=== PATIENT | female | born 1960 | race Caucasian/White ===

== ENCOUNTER 2018-04-11 18:00 | Inpatient (IN) ==
[2018-04-11] MEDS ORDERED: Mag Hydrox/Al Hydrox/Simeth 30 ML UDC PO PRN (18:52)
[2018-04-11] MEDS: *HR* OxyCODONE Immed Rel 5 MG TABLET PO PRN (21:06)
[2018-04-11] MEDS: Ziprasidone 20 MG CAPSULE PO SCH (21:57)
[2018-04-11] MEDS: Acetaminophen 325 MG TABLET PO PRN (22:00)
[2018-04-12 04:53] LABS: Basophils % 0.3 %; Eosinophils # 0.3 K/mcL (0.0-0.6); Eosinophils % 2.4 %; Hematocrit 33.1 % (35.3-44.9); Hemoglobin 10.8 g/dL (11.5-15.4); Immature Granulocytes % 0.8 % (0-4); Lymphocytes # 3.1 K/mcL (0.6-4.6); Lymphocytes % 24.2 %; Mean Corpuscular HGB Conc 32.6 g/dL (31.6-35.5); Mean Corpuscular Hemoglobin 26.2 pg (28.0-33.3); Mean Corpuscular Volume 80.1 fL (83.0-100.0); Mean Platelet Volume 8.5 fL (9.4-12.4); Monocytes # 1.1 K/mcL (0.0-1.3); Monocytes % 8.5 %; Neutrophils # 8.1 K/mcL (1.6-8.9); Platelet Count 382 K/mcL (140-400); Red Blood Count 4.13 M/mcL (3.82-4.97); Red Cell Distribution Width 13.9 % (11.5-14.5); Segmented Neutrophils % 63.8 %
[2018-04-12 05:09] LABS: BUN/Creatinine Ratio 13 (6-26); Blood Urea Nitrogen 8 mg/dL (6-20); Calcium 9.4 mg/dL (8.6-10.3); Carbon Dioxide 26 mEq/L (23-29); Chloride 99 mEq/L (98-107); Glucose 206 mg/dL (70-105); Osmolality,Calculated 280 (280-300); Potassium 3.8 mEq/L (3.5-5.1); Sodium 133 mEq/L (136-145); eGFR For Non-African Americans > 60 (> 60)
[2018-04-12] MEDS: *HR* OxyCODONE Immed Rel 5 MG TABLET PO PRN ×4 (05:58→20:50)
[2018-04-12] MEDS: *HR* Enoxaparin 40 MG/0.4 ML SYRINGE SQ SCH (05:59)
[2018-04-12] MEDS ORDERED: *HR* Metformin 500 MG TABLET PO SCH (08:00)
[2018-04-12] MEDS: amLODIPine 5 MG TABLET PO SCH (08:46)
[2018-04-12] MEDS: Aspirin Enteric Coated 81 MG Tablet PO SCH (08:47)
[2018-04-12] MEDS: Lisinopril 20 MG TABLET PO SCH (08:47)
[2018-04-12] MEDS: *HR* Pioglitazone 15 MG TABLET PO SCH (08:47)
[2018-04-12] MEDS: Loratadine 10 MG TABLET PO SCH (08:47)
[2018-04-12] MEDS: BuPROPion XL (24 HR) 150 MG TABLET PO SCH (08:47)
[2018-04-12] MEDS: Ziprasidone 20 MG CAPSULE PO SCH ×2 (08:48→20:49)
[2018-04-12] MEDS: *HR* Metformin 500 MG TABLET PO SCH ×2 (08:56→16:53)
[2018-04-12] MEDS ORDERED: *HR* Glimepiride 4 MG TABLET PO SCH (09:00)
--- NOTE | 2018-04-12 11:23 | Internal Med History&Physical ---
Date of Encounter: 04/12/18 Time of Encounter: 11:15 Assessment and Plan (1) S/P total knee replacement Current visit: Yes Status: Acute Patient is recent admission where she had a left total knee replacement at [facility]. Left knee with midline incision that appears healthy and intact with no drainage noted. Minimal ecchymosis. No erythema. Left knee does appear somewhat swollen. Patient states that her pain is tolerable with current medications. States she already began physical therapy is progressing well. Qualifiers: Laterality: left Qualified Code(s): Z96.652 - Presence of left artificial knee joint (2) HTN (hypertension) Current visit: Yes Status: Chronic Vital signs are stable. We will continue with current medications. Qualifiers: Hypertension type: essential hypertension Qualified Code(s): I10 - Essential (primary) hypertension (3) Diabetes Current visit: Yes Status: Chronic No acute issues. Patient's glucose has been somewhat elevated but less than 200. We will continue to monitor and cover with sliding scale. To continue with her home regimen of coverage. 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 Patient continues on home medications. No complaints of arthritic type pain. We will continue with current plan of care. Qualifiers: Rheumatoid arthritis location: unspecified site Rheumatoid factor presence : unspecified presence Qualified Code(s): M06.9 - Rheumatoid arthritis, unspecified (5) Schizo affective schizophrenia Current visit: Yes Status: Chronic No acute issues. Patient has been interacting well with staff with no behavior issues reported. We will continue on current medications. Internal Medicine - H&P: HPI Chief complaint: right total knee replacement Admitted From: Hospital to Hospital Transfer Plans for Post Hospital Care: Home History of present illness: Ms. De Los Santos is a 57 year old female , who had a left total knee replacement at an [facility]. Patient's surgery recovery at [facility] was uneventful. Patient was transferred to this facility for further rehabilitation due to deconditioning. Patient has a history of hypertension, diabetes,, depression, anxiety and schizophrenia. Patient states that the pain to her right knee has been we will tolerated with current medications. She states that she began her physical therapy today and is progressing well with that. Denies any other discomforts or shortness of breath. Past Med Surg Social Fam HX - Past Medical History Medical history: arthritis, diabetes, GERD, glaucoma, hypertension, thyroid disease, other Additional medical history: Tremors, Sleep Apnea, Heart Disease Psychiatric history: anxiety, depression, schizophrenia - Past Surgical History Surgical History: cholecystectomy, knee replacement, other Additional surgical history: Tonsilectomy - Social History Smoking Status: Never smoker Smokeless Tobacco Status: No Alcohol use: none Drug use: none - Family History Mother Living Status: Still Living Hx Family Endocrine Disorder: Yes Father Living Status: Hx Family Cardiac Disorders: Yes Hx Family Endocrine Disorder: Yes Internal Medicine - H&P: Meds Amantadine [Symmetrel] 100 mg PO TID 05/11/17 [History] BuPROPion [Wellbutrin] 300 mg PO DAILY 05/11/17 [History] Citalopram [CeleXA] 40 mg PO DAILY 05/11/17 [History] Glimepiride [Amaryl] 4 mg PO BID 05/11/17 [History] Levothyroxine [Synthroid] 125 mcg PO 0630 05/11/17 [History] Lisinopril [Zestril] 20 mg PO DAILY 05/11/17 [History] Loratadine [Claritin] 10 mg PO DAILY 05/11/17 [History] Omeprazole 40 mg PO DAILY 05/11/17 [History] Ziprasidone [Geodon] 40 mg PO BID 05/11/17 [History] Zolpidem [Ambien] 5 mg PO HS PRN 05/11/17 [History] amLODIPine [Norvasc] 10 mg PO DAILY 05/11/17 [History] diazePAM [Valium] 2 mg PO BID PRN 05/11/17 [History] metFORMIN [Glucophage] 1,000 mg PO BIDWM 05/11/17 [History] Aspirin [Ecotrin] 325 mg PO DAILY 04/11/18 [History] Chlorhexidine Gluconate [Hibiclens] 4 % TP DAILY 04/11/18 [History] Diclofenac Sodium 100 gm TP QID PRN 04/11/18 [History] Pioglitazone [Actos] 15 mg PO DAILY 04/11/18 [History] 3 Allergy/AdvReac Type Severity Reaction Status Date / [facility] Allergy Hives Verified 04/11/18 19:07 All Systems PM: A 10-system review of systems was performed and is negative for pertinent findings except as documented above in the HPI. - Constitutional Constitutional: as per HPI, no chills, no fever(s), no night sweats - EENT Eyes: no change in vision, no discharge, no pain, no photophobia Ears: no ear discharge, no ear pain, no tinnitus Nose, mouth and throat: no dysphagia, no nasal discharge, no neck pain, no sore throat - Cardiovascular Cardiovascular ROS IM: as per HPI, no chest pain, no diaphoresis, no dyspnea, no lightheadedness, no palpitations, no syncope - Respiratory Respiratory: as per HPI, no cough, no dyspnea, no wheezing, no excessive phlegm production - Gastrointestinal Gastrointestinal: as per HPI, no abdominal pain, no diarrhea, no hematemesis, no hematochezia, no melena, no nausea, no vomiting - Genitourinary Genitourinary: no change in urinary stream, no dysuria, no flank pain, no hematuria - Musculoskeletal Musculoskeletal ROS IM: as per HPI, no numbness, no tingling - Integumentary Integumentary IM: no rash, no unusual bruising - Neurological Neurological ROS: no confusion, no convulsions, no focal weakness, no numbness, no tingling, no tremor(s) - Hematologic/Lymphatic Hematologic/Lymphatic: no easy bruising - Constitutional Vitals: Temp Pulse Resp BP Pulse Ox 98.9 F 90 16 172/98 95 04/12/18 07:20 04/12/18 07:20 04/12/18 07:20 04/12/18 07:20 04/12/18 07:20 General appearance: Present: A&O X 3, pleasant - Head Head exam: Present: atraumatic, normocephalic - Eye Eye exam: Present: PERRL, conjuntiva pink, sclera anicteric Pupils: Present: PERRL - Neck Neck exam general surgery: Present: supple, trachea midline. Absent: lymphadenopathy - Respiratory Respiratory exam: Present: CTAB. Absent: accessory muscle use, rales, rhonchi, wheezes - Cardiovascular Cardiovascular exam: Present: RRR, +S1, +S2. Absent: diastolic murmur, gallop, rubs, systolic murmur - GI/Abdominal GI/Abdominal exam: Present: normal bowel sounds, soft, no peritoneal signs. Absent: distended, tenderness - Extremities Exam Extremities exam: Present: warm, radial pulses palpable and symmetrical. Absent : calf tenderness, cyanotic, pedal edema Additional comments: Left knee continues to have moderate amount of edema, but midline surgical incision appears healthy and intact. Minimal ecchymosis noted. No erythema. - Neurological Exam Neurological exam: Present: CN II-XII intact, oriented X3, no focal deficits. Absent: pronater drift, facial droop, speech deficit - Skin Skin exam: Present: dry, intact Internal Med - H&P Results - Labs CBC & Chem 7: 04/12/18 04:42 04/12/18 04:42 Labs: Short CBC 04/12/18 Range/Units 04:42 WBC 12.7 H (4.3-11.1) K/mcL Hgb 10.8 L (11.5-15.4) g/dL Hct 33.1 L (35.3-44.9) % Plt Count 382 (140-400) K/mcL Neutrophils # 8.1 (1.6-8.9) K/mcL BMP 04/12/18 04:42 Sodium 133 L Potassium 3.8 Chloride 99 Carbon Dioxide 26 BUN 8 Creatinine 0.64 Glucose 206 H Calcium 9.4
[2018-04-12] MEDS: Acetaminophen 325 MG TABLET PO PRN (23:35)
[2018-04-13] MEDS: *HR* Enoxaparin 40 MG/0.4 ML SYRINGE SQ SCH (05:18)
[2018-04-13] MEDS: *HR* OxyCODONE Immed Rel 5 MG TABLET PO PRN ×5 (05:21→22:04)
[2018-04-13 06:25] LABS: Basophils # 0.1 K/mcL (0.0-0.2); Basophils % 0.6 %; Eosinophils # 0.5 K/mcL (0.0-0.6); Eosinophils % 5.3 %; Hematocrit 30.8 % (35.3-44.9); Immature Granulocytes % 0.9 % (0-4); Lymphocytes # 2.6 K/mcL (0.6-4.6); Lymphocytes % 28.2 %; Mean Corpuscular HGB Conc 32.5 g/dL (31.6-35.5); Mean Corpuscular Hemoglobin 26.4 pg (28.0-33.3); Mean Corpuscular Volume 81.3 fL (83.0-100.0); Mean Platelet Volume 8.6 fL (9.4-12.4); Monocytes # 0.8 K/mcL (0.0-1.3); Monocytes % 8.6 %; Neutrophils # 5.2 K/mcL (1.6-8.9); Platelet Count 370 K/mcL (140-400); Red Blood Count 3.79 M/mcL (3.82-4.97); Red Cell Distribution Width 14.2 % (11.5-14.5); Segmented Neutrophils % 56.4 %
[2018-04-13] MEDS: Loratadine 10 MG TABLET PO SCH (08:23)
[2018-04-13] MEDS: *HR* Glimepiride 2 MG TABLET PO SCH ×2 (08:24→16:45)
[2018-04-13] MEDS: BuPROPion XL (24 HR) 150 MG TABLET PO SCH (08:24)
[2018-04-13] MEDS: Lisinopril 20 MG TABLET PO SCH (08:24)
[2018-04-13] MEDS: Ziprasidone 20 MG CAPSULE PO SCH ×2 (08:24→20:20)
[2018-04-13] MEDS: Aspirin Enteric Coated 81 MG Tablet PO SCH (08:24)
[2018-04-13] MEDS: *HR* Pioglitazone 15 MG TABLET PO SCH (08:24)
[2018-04-13] MEDS: amLODIPine 5 MG TABLET PO SCH (08:25)
[2018-04-13] MEDS: *HR* Metformin 500 MG TABLET PO SCH ×2 (08:25→16:44)
--- NOTE | 2018-04-13 12:44 | Internal Med Progress Note ---
Date of Encounter: 04/13/18 Time of Encounter: 10:50 - Assessment and plan (1) S/P total knee replacement Current Visit: Yes Status: Acute Assessment and plan: She is stable, improving, and participating well in therapy per her. We will continue therapy and see about her safety as the days progressed. Qualifiers: Laterality: left Qualified Code(s): Z96.652 - Presence of left artificial knee joint (2) Schizo affective schizophrenia Current Visit: Yes Status: Chronic Assessment and plan: Clinically stable. We will continue home regimen and follow. (3) HTN (hypertension) Current Visit: Yes Status: Chronic Assessment and plan: Mildly elevated but will follow. 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 Qualifiers: Rheumatoid arthritis location: unspecified site Rheumatoid factor presence : unspecified presence Qualified Code(s): M06.9 - Rheumatoid arthritis, unspecified - Subjective Interval history: The patient is feeling much better today. She states that she is doing well with therapy. She had significant drainage, per nursing, at her knee. There is no abdominal pain but she does feel slightly tender in the epigastric region. She had a bowel movement this morning and feels better from that standpoint. She has no urinary symptoms. Patient has no complaint of chest discomfort, dyspnea, orthopnea, palpitations, nausea or vomiting, constipation or diarrhea, other changes in bowel habits, difficulty with urination, rash or itching, or other new complaints, except as mentioned above. Review of systems is otherwise negative. I discussed management of her care with nursing staff. - Constitutional Vitals: Temp Pulse Resp BP Pulse Ox 99.4 F 86 16 143/77 96 04/13/18 06:49 04/13/18 06:49 04/13/18 06:49 04/13/18 06:49 04/13/18 06:49 General appearance: Present: pleasant Exam: Examination: (Except as mentioned above): General: In no apparent distress. Alert and oriented 3. Nondiaphoretic. Head: Atraumatic and normocephalic. Respiratory: No use of accessory muscles. Lungs are clear throughout. Normal airflow. Cardiovascular: Regular rate and rhythm without murmur appreciated. Abdomen: Bowel sounds are normal. No hepatosplenomegaly mass or tenderness appreciated. Morbidly obese and therefore difficult to palpate deeply. Extremities: No cyanosis clubbing or edema. After dressing change, the knee looks good. Skin: Warm and non-diaphoretic with no new lesions noted. Internal Medicine: Result - Labs CBC & Chem 7: 04/13/18 05:15 04/12/18 04:42 Labs: Short CBC 04/13/18 Range/Units 05:15 WBC 9.3 (4.3-11.1) K/mcL Hgb 10.0 L (11.5-15.4) g/dL Hct 30.8 L (35.3-44.9) % Plt Count 370 (140-400) K/mcL Neutrophils # 5.2 (1.6-8.9) K/mcL Consult Discharge Plan - Plan Referrals: Genet Trotter, SKIP PIT WORKER [Primary Care Provider] -
[2018-04-13] MEDS: Acetaminophen 325 MG TABLET PO PRN (20:17)
[2018-04-13] MEDS: diazePAM 2 MG TABLET PO PRN (20:21)
[2018-04-14] MEDS: *HR* OxyCODONE Immed Rel 5 MG TABLET PO PRN ×5 (04:57→21:59)
[2018-04-14] MEDS: *HR* Enoxaparin 40 MG/0.4 ML SYRINGE SQ SCH (04:57)
[2018-04-14] MEDS: Acetaminophen 325 MG TABLET PO PRN ×3 (07:33→15:14)
[2018-04-14] MEDS: BuPROPion XL (24 HR) 150 MG TABLET PO SCH (08:41)
[2018-04-14] MEDS: *HR* Metformin 500 MG TABLET PO SCH ×2 (08:41→17:39)
[2018-04-14] MEDS: Ziprasidone 20 MG CAPSULE PO SCH ×2 (08:41→20:16)
[2018-04-14] MEDS: amLODIPine 5 MG TABLET PO SCH (08:41)
[2018-04-14] MEDS: *HR* Glimepiride 2 MG TABLET PO SCH ×2 (08:42→17:38)
[2018-04-14] MEDS: Lisinopril 20 MG TABLET PO SCH (08:42)
[2018-04-14] MEDS: *HR* Pioglitazone 15 MG TABLET PO SCH (08:43)
[2018-04-14] MEDS: Aspirin Enteric Coated 81 MG Tablet PO SCH (08:43)
[2018-04-14] MEDS: Loratadine 10 MG TABLET PO SCH (08:43)
[2018-04-14] MEDS: diazePAM 2 MG TABLET PO PRN (10:16)
--- NOTE | 2018-04-14 13:04 | Internal Med Progress Note ---
Date of Encounter: 04/14/18 Time of Encounter: 13:02 - Assessment and plan (1) S/P total knee replacement Current Visit: Yes Status: Acute Assessment and plan: No acute issues. Patient continues to recover and progressed well with physical therapy. Left knee surgical incision appears healthy although minimal amount of serous drainage reported on dressing yesterday. No erythema , but ecchymosis noted. Patient to continue with current physical therapy. Pain well -managed with current pain medications. Will continue with continuous icing and recommend her to use CPM due to moderate edema present. Qualifiers: Laterality: left Qualified Code(s): Z96.652 - Presence of left artificial knee joint (2) HTN (hypertension) Current Visit: Yes Status: Chronic Assessment and plan: Vital signs stable. We will continue with current medications. Qualifiers: Hypertension type: essential hypertension Qualified Code(s): I10 - Essential (primary) hypertension (3) Diabetes Current Visit: Yes Status: Chronic Assessment and plan: Glucose remained slightly elevated but most readings are less than 200. 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 Patient to continue with current rheumatoid medications. Qualifiers: Rheumatoid arthritis location: unspecified site Rheumatoid factor presence : unspecified presence Qualified Code(s): M06.9 - Rheumatoid arthritis, unspecified (5) Schizo affective schizophrenia Current Visit: Yes Status: Chronic Assessment and plan: No behavior issues reported. Patient interacting well with staff and progressing well with therapy. We will continue with current home medications - Time Spent With Patient less than 15 minutes - Subjective Interval history: Patient appears relaxant and currently denies any discomforts or shortness of breath. Patient states that her pain has been well-controlled with current medications. Patient also was using CPM machine, but states that she stopped after one night because of pain and felt that it was not helping. Nurse reports a dressing change yesterday with a minimal amount of serous drainage present, but that the surgical incision remains intact and healthy. - Constitutional Vitals: Temp Pulse Resp BP Pulse Ox 98.0 F 91 18 165/90 99 04/14/18 06:53 04/14/18 06:53 04/14/18 06:53 04/14/18 06:53 04/14/18 06:53 General appearance: Present: A&O X 3, pleasant - Head Head exam: Present: atraumatic, normocephalic - Eye Eye exam: Present: PERRL, conjuntiva pink, sclera anicteric Pupils: Present: PERRL - Neck Neck exam general surgery: Present: supple, trachea midline. Absent: lymphadenopathy - Respiratory Respiratory exam: Present: CTAB. Absent: accessory muscle use, rales, rhonchi, wheezes - Cardiovascular Cardiovascular exam: Present: RRR, +S1, +S2. Absent: diastolic murmur, gallop, rubs, systolic murmur - GI/Abdominal GI/Abdominal exam: Present: normal bowel sounds, soft, no peritoneal signs. Absent: distended, tenderness - Extremities Exam Extremities exam: Present: warm, radial pulses palpable and symmetrical. Absent : calf tenderness, cyanotic, pedal edema Additional comments: Left knee with midline surgical incision that appears dry and intact. No erythema, but moderate amount of ecchymosis noted. Moderate amount of swelling noted. - Neurological Exam Neurological exam: Present: CN II-XII intact, oriented X3, no focal deficits. Absent: pronater drift, facial droop, speech deficit - Skin Skin exam: Present: dry, intact Internal Medicine: Result - Labs CBC & Chem 7: 04/13/18 05:15 04/12/18 04:42 Consult Discharge Plan - Plan Referrals: Genet Trotter CNP [Primary Care Provider] -
[2018-04-14] MEDS ORDERED: cloNIDine HCl 0.1 MG TABLET PO PRN (13:54)
[2018-04-14] MEDS: tiZANidine 4 MG TABLET PO PRN ×2 (15:15→20:18)
[2018-04-14 22:06] LABS: Bilirubin,Urine Negative (Negative); Blood,Urine Negative (Negative); Clarity,Urine Slightly Cloudy (Clear); Color,Urine Yellow (Yellow); Glucose,Urine (UA) Normal (Normal); Ketones,Urine Negative (Negative); Leukocyte Esterase,Urine Negative (Negative); Nitrite,Urine Negative (Negative); Protein,Urine Negative (Neg-Trace); Urobilinogen,Urine Normal (Normal)
[2018-04-15] MEDS: Acetaminophen 325 MG TABLET PO PRN ×5 (01:13→23:20)
[2018-04-15] MEDS: *HR* OxyCODONE Immed Rel 5 MG TABLET PO PRN ×5 (02:43→20:20)
[2018-04-15] MEDS: *HR* Enoxaparin 40 MG/0.4 ML SYRINGE SQ SCH (06:56)
[2018-04-15 07:12] LABS: Alanine Aminotransferase 14 Units/L (7-52); Albumin 3.6 g/dL (3.5-5.7); Albumin/Globulin Ratio 1.4 (1.1-2.2); Alkaline Phosphatase 101 Units/L (34-104); Aspartate Amino Transferase 10 Units/L (13-39); BUN/Creatinine Ratio 18 (6-26); Bilirubin,Total 0.7 mg/dL (0.3-1.0); Blood Urea Nitrogen 12 mg/dL (6-20); Calcium 9.5 mg/dL (8.6-10.3); Carbon Dioxide 25 mEq/L (23-29); Chloride 99 mEq/L (98-107); Globulin 2.6 g/dL (2.4-3.5); Glucose 216 mg/dL (70-105); Osmolality,Calculated 282 (280-300); Potassium 4.1 mEq/L (3.5-5.1); Sodium 133 mEq/L (136-145); Total Protein 6.2 g/dL (6.4-8.9); eGFR For Non-African Americans > 60 (> 60)
[2018-04-15] MEDS: amLODIPine 5 MG TABLET PO SCH (08:54)
[2018-04-15] MEDS: *HR* Glimepiride 2 MG TABLET PO SCH ×2 (08:54→17:12)
[2018-04-15] MEDS: Lisinopril 20 MG TABLET PO SCH (08:55)
[2018-04-15] MEDS: Loratadine 10 MG TABLET PO SCH (08:55)
[2018-04-15] MEDS: BuPROPion XL (24 HR) 150 MG TABLET PO SCH (08:55)
[2018-04-15] MEDS: *HR* Metformin 500 MG TABLET PO SCH ×2 (08:55→17:12)
[2018-04-15] MEDS: *HR* Pioglitazone 15 MG TABLET PO SCH (08:55)
[2018-04-15] MEDS: diazePAM 2 MG TABLET PO PRN (09:13)
[2018-04-15] MEDS: Aspirin Enteric Coated 81 MG Tablet PO SCH (11:01)
[2018-04-15] MEDS: Ziprasidone 20 MG CAPSULE PO SCH ×2 (11:01→20:19)
--- NOTE | 2018-04-15 11:40 | Internal Med Progress Note ---
Date of Encounter: 04/15/18 Time of Encounter: 11:38 - Assessment and plan (1) S/P total knee replacement Current Visit: Yes Status: Acute Assessment and plan: No acute issues. Patient continues to recover and progressed well with physical therapy. Left knee surgical incision appears healthy although continued swelling to left knee noted. No erythema , but ecchymosis noted. Patient to continue with current physical therapy. Pain well-managed with current pain medications. Patient refusing use of CPM machine. Qualifiers: Laterality: left Qualified Code(s): Z96.652 - Presence of left artificial knee joint (2) HTN (hypertension) Current Visit: Yes Status: Chronic Assessment and plan: Vital signs stable. We will continue with current medications. Qualifiers: Hypertension type: essential hypertension Qualified Code(s): I10 - Essential (primary) hypertension (3) Diabetes Current Visit: Yes Status: Chronic Assessment and plan: Glucose remained slightly elevated but most readings are less than 200. We will continue with current sliding scale and medication regimen Qualifiers: Diabetes mellitus type: type 2 Diabetes mellitus acute specialist insulin use: unspecified acute specialist insulin use status Diabetes mellitus complication status : with unspecified complications Qualified Code(s): E11.8 - Type 2 diabetes mellitus with unspecified complications (4) Rheumatoid arthritis Current Visit: Yes Status: Chronic Assessment and plan: No acute issues reported. Patient to continue with current rheumatoid medications. Qualifiers: Rheumatoid arthritis location: unspecified site Rheumatoid factor presence : unspecified presence Qualified Code(s): M06.9 - Rheumatoid arthritis, unspecified (5) Schizo affective schizophrenia Current Visit: Yes Status: Chronic Assessment and plan: No behavior issues reported. Patient interacting well with staff and progressing well with therapy. We will continue with current home medications - Time Spent With Patient less than 15 minutes - Subjective Interval history: Patient appears relaxant and currently denies any discomforts or shortness of breath. Patient states that her pain has been well-controlled with current medications. Patient does complain of swelling to her left knee, but does state it has lessened some. - Constitutional Vitals: Temp Pulse Resp BP Pulse Ox 97.9 F 82 16 169/71 97 04/15/18 07:00 04/15/18 07:00 04/15/18 07:00 04/15/18 07:00 04/15/18 07:00 General appearance: Present: A&O X 3, pleasant - Head Head exam: Present: atraumatic, normocephalic - Eye Eye exam: Present: PERRL, conjuntiva pink, sclera anicteric Pupils: Present: PERRL - Neck Neck exam general surgery: Present: supple, trachea midline. Absent: lymphadenopathy - Respiratory Respiratory exam: Present: CTAB. Absent: accessory muscle use, rales, rhonchi, wheezes - Cardiovascular Cardiovascular exam: Present: RRR, +S1, +S2. Absent: diastolic murmur, gallop, rubs, systolic murmur - GI/Abdominal GI/Abdominal exam: Present: normal bowel sounds, soft, no peritoneal signs. Absent: distended, tenderness - Extremities Exam Extremities exam: Present: warm, radial pulses palpable and symmetrical. Absent : calf tenderness, cyanotic, pedal edema Additional comments: Left knee and thigh remains slightly swollen. Left knee midline surgical incision remains dry and intact with no erythema. Moderate ecchymosis noted surrounding the incision, which appears to be fading. No calf pain on palpation or movement - Neurological Exam Neurological exam: Present: CN II-XII intact, oriented X3, no focal deficits. Absent: pronater drift, facial droop, speech deficit - Skin Skin exam: Present: dry, intact Internal Medicine: Result - Labs CBC & Chem 7: 04/13/18 05:15 04/15/18 06:35 Labs: BMP 04/15/18 06:35 Sodium 133 L Potassium 4.1 Chloride 99 Carbon Dioxide 25 BUN 12 Creatinine 0.66 Glucose 216 H Calcium 9.5 Liver Function 04/15/18 Range/Units 06:35 Total Bilirubin 0.7 (0.3-1.0) mg/dL AST 10 L (13-39) Units/L ALT 14 (7-52) Units/L Alkaline Phosphatase 101 (34-104) Units/L Albumin 3.6 (3.5-5.7) g/dL Urine 04/14/18 Range/Units 14:50 Urine Color Yellow (Yellow) Urine Clarity Slightly Cloudy A (Clear) Urine pH 6.0 (5.0-8.0) pH Units Ur Specific Darby 1.010 (1.010-1.025) Urine Protein Negative (Neg-Trace) mg/dL Urine Glucose (UA) Normal (Normal) mg/dL Consult Discharge Plan - Plan Referrals: Lower,Genet L, SENIOR WEB DEVELOPER [Primary Care Provider] -
[2018-04-15] MEDS: tiZANidine 4 MG TABLET PO PRN ×2 (17:12→23:20)
[2018-04-16] MEDS: *HR* OxyCODONE Immed Rel 5 MG TABLET PO PRN ×5 (00:27→20:15)
[2018-04-16] MEDS: Acetaminophen 325 MG TABLET PO PRN ×3 (03:35→17:06)
[2018-04-16] MEDS: *HR* Enoxaparin 40 MG/0.4 ML SYRINGE SQ SCH (06:06)
[2018-04-16] MEDS: *HR* Metformin 500 MG TABLET PO SCH ×2 (08:17→17:05)
[2018-04-16] MEDS: Lisinopril 20 MG TABLET PO SCH (08:17)
[2018-04-16] MEDS: BuPROPion XL (24 HR) 150 MG TABLET PO SCH (08:17)
[2018-04-16] MEDS: Loratadine 10 MG TABLET PO SCH (08:17)
[2018-04-16] MEDS: *HR* Glimepiride 2 MG TABLET PO SCH ×2 (08:17→17:05)
[2018-04-16] MEDS: Ziprasidone 20 MG CAPSULE PO SCH ×2 (08:17→20:14)
[2018-04-16] MEDS: amLODIPine 5 MG TABLET PO SCH (08:17)
[2018-04-16] MEDS: Aspirin Enteric Coated 81 MG Tablet PO SCH (08:18)
[2018-04-16] MEDS: *HR* Pioglitazone 15 MG TABLET PO SCH (08:18)
[2018-04-16] MEDS: tiZANidine 4 MG TABLET PO PRN ×2 (08:36→14:55)
--- NOTE | 2018-04-16 10:16 | Internal Med Progress Note ---
Date of Encounter: 04/16/18 Time of Encounter: 10:13 - Assessment and plan (1) S/P total knee replacement Current Visit: Yes Status: Acute Assessment and plan: participating well with therapy. independent on unit with walker. continue current pain meds. f/u with ortho as scheduled. Qualifiers: Laterality: left Qualified Code(s): Z96.652 - Presence of left artificial knee joint (2) Obesity Current Visit: Yes Status: Acute Assessment and plan: educate on weight loss Qualifiers: Obesity type: unspecified obesity type Obesity classification: adult class 3 (BMI >= 40) Serious obesity comorbidity presence: without serious comorbidity Body mass index: BMI 45.0-49.9 Qualified Code(s): E66.01 - Morbid (severe) obesity due to excess calories; Z68.42 - Body mass index (BMI) 45.0-49.9, adult (3) HTN (hypertension) Current Visit: Yes Status: Chronic Assessment and plan: controlled with current meds. monitor BP. Qualifiers: Hypertension type: essential hypertension Qualified Code(s): I10 - Essential (primary) hypertension (4) Diabetes Current Visit: Yes Status: Chronic Assessment and plan: controlled with current meds. monitor FSBS. will adjust meds as necessary. 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 Qualifiers: Rheumatoid arthritis location: unspecified site Rheumatoid factor presence : unspecified presence Qualified Code(s): M06.9 - Rheumatoid arthritis, unspecified (6) Schizo affective schizophrenia Current Visit: Yes Status: Chronic Assessment and plan: no issues in communication with staff. stable with current meds. - Time Spent With Patient less than 15 minutes - Subjective Interval history: participating well with therapy. independant with walker on unit. planning for discharge tomorrow with home therapy. current pain regimen effective. denies fever, chills, NVD, SOB or chest pain. maintaining appetite and hydration. bowels moving as normal. - Constitutional Vitals: Temp Pulse Resp BP Pulse Ox 99.0 F 83 16 184/96 98 04/16/18 07:11 04/16/18 07:11 04/16/18 07:11 04/16/18 07:11 04/16/18 07:11 General appearance: Present: cooperative, A&O X 3, pleasant, no acute distress, obese, answers questions appropriately - Head Head exam: Present: atraumatic, normocephalic - Eye Eye exam: Present: PERRL, conjuntiva pink, sclera anicteric Pupils: Present: PERRL - Neck Neck exam general surgery: Present: supple, trachea midline. Absent: lymphadenopathy - Respiratory Respiratory exam: Present: CTAB. Absent: accessory muscle use, rales, rhonchi, wheezes - Cardiovascular Cardiovascular exam: Present: RRR, +S1, +S2. Absent: diastolic murmur, gallop, rubs, systolic murmur - GI/Abdominal GI/Abdominal exam: Present: normal bowel sounds, soft, no peritoneal signs. Absent: distended, tenderness - Extremities Exam Extremities exam: Present: warm, radial pulses palpable and symmetrical. Absent : calf tenderness, cyanotic, pedal edema - Incison Comments: left knee incision drsg dry and intact. surrounding edema. - Neurological Exam Neurological exam: Present: CN II-XII intact, oriented X3, no focal deficits. Absent: pronater drift, facial droop, speech deficit - Skin Skin exam: Present: dry, intact Internal Medicine: Result - Labs CBC & Chem 7: 04/13/18 05:15 04/15/18 06:35 - VTE Documentation of Mechanical Device: Graduated compression elastic hosiery Consult Discharge Plan - Plan Referrals: Genet Trotter BEDSPREAD CUTTER [Primary Care Provider] -
[2018-04-17] MEDS: *HR* OxyCODONE Immed Rel 5 MG TABLET PO PRN ×3 (01:06→12:51)
[2018-04-17] MEDS: Acetaminophen 325 MG TABLET PO PRN ×3 (03:02→14:38)
[2018-04-17] MEDS: tiZANidine 4 MG TABLET PO PRN ×2 (03:06→09:57)
[2018-04-17] MEDS: *HR* Enoxaparin 40 MG/0.4 ML SYRINGE SQ SCH (05:24)
[2018-04-17 07:19] VITALS: BP 156/72
[2018-04-17] MEDS: Loratadine 10 MG TABLET PO SCH (07:41)
[2018-04-17] MEDS: Lisinopril 20 MG TABLET PO SCH (07:41)
[2018-04-17] MEDS: BuPROPion XL (24 HR) 150 MG TABLET PO SCH (07:41)
[2018-04-17] MEDS: amLODIPine 5 MG TABLET PO SCH (07:41)
[2018-04-17] MEDS: *HR* Glimepiride 2 MG TABLET PO SCH (07:41)
[2018-04-17] MEDS: *HR* Pioglitazone 15 MG TABLET PO SCH (07:41)
[2018-04-17] MEDS: *HR* Metformin 500 MG TABLET PO SCH (07:41)
[2018-04-17] MEDS: Ziprasidone 20 MG CAPSULE PO SCH (07:41)
[2018-04-17] MEDS: Aspirin Enteric Coated 81 MG Tablet PO SCH (07:42)
--- NOTE | 2018-04-17 11:30 | Physician Discharge Referral ---
Home Health/Hosp Referral Info Transfer to: Home Health Provider in Charge Post Discharge: PCP - Diagnosis (1) S/P total knee replacement Priority: Primary Status: Acute (2) Obesity Priority: Secondary Status: Acute (3) HTN (hypertension) Priority: Secondary Status: Chronic (4) Diabetes Priority: Secondary Status: Chronic (5) Rheumatoid arthritis Priority: Secondary Status: Chronic (6) Schizo affective schizophrenia Priority: Secondary Status: Chronic - Respiratory Orders Smoking Cessation: Smoking cessation has been advised. For more information, call the [place] Tobacco Quit Line at 7-070-FUNQ-NOW. - Diet/Nutrition Diet/Nutrition Orders: No Concentrated Sweets - Activity Activity Orders: Ambulate, Walker - Services Needed Following services are medically necessary services: Nursing, Physical Therapy - Transfer Medications Home Medications: Amantadine [Symmetrel] 100 mg PO TID 05/11/17 [History] BuPROPion [Wellbutrin] 300 mg PO DAILY 05/11/17 [History] Citalopram [CeleXA] 40 mg PO DAILY 05/11/17 [History] Glimepiride [Amaryl] 4 mg PO BID 05/11/17 [History] Levothyroxine [Synthroid] 125 mcg PO 0630 05/11/17 [History] Lisinopril [Zestril] 20 mg PO DAILY 05/11/17 [History] Loratadine [Claritin] 10 mg PO DAILY 05/11/17 [History] Omeprazole 40 mg PO DAILY 05/11/17 [History] Ziprasidone [Geodon] 40 mg PO BID 05/11/17 [History] Zolpidem [Ambien] 5 mg PO HS PRN 05/11/17 [History] amLODIPine [Norvasc] 10 mg PO DAILY 05/11/17 [History] diazePAM [Valium] 2 mg PO BID PRN 05/11/17 [History] metFORMIN [Glucophage] 1,000 mg PO BIDWM 05/11/17 [History] Aspirin [Ecotrin] 325 mg PO DAILY 04/11/18 [History] Chlorhexidine Gluconate [Hibiclens] 4 % TP DAILY 04/11/18 [History] Diclofenac Sodium 100 gm TP QID PRN 04/11/18 [History] Pioglitazone [Actos] 15 mg PO DAILY 04/11/18 [History] Allergies/Adverse Reactions: 3 Allergy/AdvReac Type Severity Reaction Status Date / Time fluoxetine [From Prozac] Allergy Hives Verified 04/11/18 19:07 Certification: Further, I certify that my clinical findings support that this patient is homebound (i.e. absences from home require considerable and taxing effort and are for medical reasons or muslim services or infrequently or short duration when for other reasons) because: Homebound Reason: Patient requires assistance of a person or device to safely leave home, Post-surgery restriction and or conditions limit ability to leave home Attestation: My signature below is to certify that this patient is under my care and that I, or nurse practitioner, or a physician's school office assistant working with me, has a face-to -face encounter with this patient.
--- NOTE | 2018-04-17 11:32 | Discharge Summary ---
Date of Encounter: 04/17/18 Time of Encounter: 11:30 - Discharge Diagnosis (1) S/P total knee replacement Priority: Primary Status: Acute Comments: Continue current pain medication as needed. Physical therapy and nursing ordered for home. Follow up with PCP and ortho as scheduled. Qualifiers: Laterality: left Qualified Code(s): Z96.652 - Presence of left artificial knee joint (2) Obesity Priority: Secondary Status: Acute Comments: Educate on weight loss. Follow up with PCP. Qualifiers: Obesity type: unspecified obesity type Obesity classification: adult class 3 (BMI >= 40) Serious obesity comorbidity presence: without serious comorbidity Body mass index: BMI 45.0-49.9 Qualified Code(s): E66.01 - Morbid (severe) obesity due to excess calories; Z68.42 - Body mass index (BMI) 45.0-49.9, adult (3) HTN (hypertension) Priority: Secondary Status: Chronic Comments: Controlled with current medication. Monitor blood pressure. Follow up with PCP. Qualifiers: Hypertension type: essential hypertension Qualified Code(s): I10 - Essential (primary) hypertension (4) Diabetes Priority: Secondary Status: Chronic Comments: Controlled with current medication. Monitor fingerstick blood sugar. Follow up with PCP. 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 Continue current medication. Follow up with PCP. Qualifiers: Rheumatoid arthritis location: unspecified site Rheumatoid factor presence : unspecified presence Qualified Code(s): M06.9 - Rheumatoid arthritis, unspecified (6) Schizo affective schizophrenia Priority: Secondary Status: Chronic Comments: Communicating well with staff. Continue current medication. Hospital course: Ms. De Los Santos is a 57 year old female discharging to home after status post left total knee replacement. Completed goals on inpatient rehab unit. Will go home with home health therapy and nursing. Has follow up with ortho. Discharge discussed with: patient, nurse, social work - Time Spent with Patient Total time spent providing and/or coordinating discharge services: Less than 30 minutes - Discharge Medications Home Medications: Amantadine [Symmetrel] 100 mg PO TID 05/11/17 [History] BuPROPion [Wellbutrin] 300 mg PO DAILY 05/11/17 [History] Citalopram [CeleXA] 40 mg PO DAILY 05/11/17 [History] Glimepiride [Amaryl] 4 mg PO BID 05/11/17 [History] Levothyroxine [Synthroid] 125 mcg PO 0630 05/11/17 [History] Lisinopril [Zestril] 20 mg PO DAILY 05/11/17 [History] Loratadine [Claritin] 10 mg PO DAILY 05/11/17 [History] Omeprazole 40 mg PO DAILY 05/11/17 [History] Ziprasidone [Geodon] 40 mg PO BID 05/11/17 [History] Zolpidem [Ambien] 5 mg PO HS PRN 05/11/17 [History] amLODIPine [Norvasc] 10 mg PO DAILY 05/11/17 [History] diazePAM [Valium] 2 mg PO BID PRN 05/11/17 [History] metFORMIN [Glucophage] 1,000 mg PO BIDWM 05/11/17 [History] Aspirin [Ecotrin] 325 mg PO DAILY 04/11/18 [History] Chlorhexidine Gluconate [Hibiclens] 4 % TP DAILY 04/11/18 [History] Diclofenac Sodium 100 gm TP QID PRN 04/11/18 [History] Pioglitazone [Actos] 15 mg PO DAILY 04/11/18 [History] Acetaminophen [Tylenol] 650 mg PO Q4HR PRN tablet 04/17/18 [Rx] Benztropine [Cogentin] 0.5 mg PO BID PRN tablet 04/17/18 [Rx] Ferrous Sulfate 325 mg PO TIDWM tablet 04/17/18 [Rx] Flu Vac 2017-(6Mos Up)Pf [Flulaval Quad 5078-6663 Syr] 0.5 ml IM .ONCE syringe 04/17/18 [Rx] OxyCODONE Immed Rel [Roxicodone 5 MG] 5 mg PO Q6HR PRN 7 Days #28 tablet [Rx] Sodium Chloride [Sodium Chloride Tab] 1 gm PO TID tablet 04/17/18 [Rx] Allergies/Adverse Reactions: 3 Allergy/AdvReac Type Severity Reaction Status Date / Time fluoxetine [From Prozac] Allergy Hives Verified 04/11/18 19:07 Date of admission: 04/11/18 18:01 Primary care physician: Genet Trotter CNP Consults: 04/11/18 18:54 Consult to Occupational Therapy [CONS] Routine Comment: Evaluate, develop and implement POC Reason for Consult: left knee replacement Does patient have active BEDREST order?: No Is patient medically & hemodynamically stable?: Yes Patient assessed for mobility or mobilized this visit?: No Consult to Physical Medicine/Rehab [CONS] Routine Reason for Consult: left knee Call Completed: No Consult to Physical Therapy [CONS] Routine Comment: Evaluate, develop and implement POC Reason for Consult: left knee replacement Does patient have active BEDREST order?: No Is patient medically & hemodynamically stable?: Yes Patient assessed for mobility or mobilized this visit?: No Consult to Recreational Therapy [CONS] Routine Comment: Evaluate, develop and implement POC Consult to Phlebotomy Tech [CONS] Routine Reason for SW Consult: discharge planning Discharging clinician: Jaden Torre Anticipated date of discharge: 04/17/18 - Constitutional Vitals: Temp Pulse Resp BP Pulse Ox 98.3 F 97 16 156/72 97 04/17/18 07:18 04/17/18 07:18 04/17/18 07:18 04/17/18 07:18 04/17/18 07:18 General appearance: Present: cooperative, A&O X 3, pleasant, no acute distress, obese, answers questions appropriately - Head Head exam: Present: atraumatic, normocephalic - Eye Eye exam: Present: PERRL, conjuntiva pink, sclera anicteric Pupils: Present: PERRL - Neck Neck exam general surgery: Present: supple, trachea midline. Absent: lymphadenopathy - Respiratory Respiratory exam: Present: CTAB. Absent: accessory muscle use, rales, rhonchi, wheezes - Cardiovascular Cardiovascular exam: Present: RRR, +S1, +S2. Absent: diastolic murmur, gallop, rubs, systolic murmur - GI/Abdominal GI/Abdominal exam: Present: normal bowel sounds, soft, no peritoneal signs. Absent: distended, tenderness - Extremities Exam Extremities exam: Present: warm, radial pulses palpable and symmetrical. Absent : calf tenderness, cyanotic, pedal edema - Incison Comments: Left knee dressing dry and intact. Surrounding edema. - Neurological Exam Neurological exam: Present: CN II-XII intact, oriented X3, no focal deficits. Absent: pronater drift, facial droop, speech deficit - Skin Skin exam: Present: dry, intact - Patient Status Disposition: Home Health Service Condition: Good Functional capacity at discharge: uses cane/walker Overall status at discharge: patient is progressing back to baseline - Discharge Instructions Follow Up With: Enio Morel MD [Non-Partnered Physician] - 04/23/18 10:15 am Genet Trotter CNP [Primary Care Provider] - 04/24/18 11:30 am - Diet and Activity Activity: as per physical therapy Diet: diabetic diet - VTE Documentation of Mechanical Device: Graduated compression elastic hosiery
== END 2018-04-17 14:54 | disposition home health service (06) | DRG 560 ==
LOC: INPGRE 18:01